=== PATIENT | male | born 1960 | race Caucasian/White ===

== ENCOUNTER 2021-01-09 11:26 | Inpatient (IN) | payer OTHER ==
[2021-01-09 14:33] LABS: URINE APPEARANCE CLEAR; URINE BILIRUBIN NEGATIVE (NEGATIVE); URINE COLOR YELLOW; URINE GLUCOSE (UA) NEGATIVE (NEGATIVE); URINE KETONE TRACE (NEGATIVE); URINE LEUK ESTERASE NEGATIVE (NEGATIVE); URINE NITRITE NEGATIVE (NEGATIVE); URINE PROTEIN NEGATIVE (NEGATIVE); URINE UROBILINOGEN 0.2 mg/dL (0.2-1.0)
[2021-01-09 14:48] LABS: BASO % 0.8 % (0-2.0); EOS % 1.3 % (0-4.5); HEMATOCRIT 43.1 % (35.4-49); HEMOGLOBIN 14.8 GM/dL (11.7-16.9); LYMPH % 18.5 % (8-40); MCH 31.4 pg (25.7-33.7); MCHC 34.4 g/dl (32.0-35.9); MEAN CELL VOLUME 91.2 fl (80-96); MEAN PLT VOLUME 8.9 fl (7.5-11.1); MONO % 8.7 % (3.8-10.2); NEUT % 70.7 % (42.8-82.8); PLATELET COUNT 208 10^3/uL (134-434); RBC 4.72 M/mm3 (4.00-5.60); RDW 13.8 % (11.9-15.9); WHITE BLOOD COUNT 8.6 K/mm3 (4.0-10.0)
[2021-01-09 15:08] LABS: CALCIUM 9.3 mg/dL (8.5-10.1)
[2021-01-09 15:09] LABS: ALBUMIN 4.4 g/dl (3.4-5.0); BLOOD UREA NITROGEN 18.7 mg/dL (7-18)
[2021-01-09 15:13] LABS: BILIRUBIN,TOTAL 0.6 mg/dL (0.2-1)
[2021-01-09] MEDS ORDERED: MORPHINE SULFATE 2 MG/ML VIAL IVPUSH PRN (20:57)
[2021-01-09] MEDS ORDERED: ACETAMINOPHEN 1000 MG/100 ML VIAL (NON FORMULARY) IVPB PRN (21:03)
[2021-01-09] MEDS ORDERED: FOLIC ACID 1 MG TABLET (FP) PO ONE (21:04)
[2021-01-09] MEDS ORDERED: FOLIC ACID 1 MG TABLET (FP) ONE (21:21)
[2021-01-09] MEDS ORDERED: THIAMINE HCL 200 MG/2 ML VIAL ONE (21:21)
[2021-01-09] MEDS ORDERED: POLYETHYLENE GLYCOL (HEALTHYLAX) 3350 17 GM PACKET ONE (21:21)
[2021-01-09] MEDS: POLYETHYLENE GLYCOL (HEALTHYLAX) 3350 17 GM PACKET PO SCH (21:46)
[2021-01-09] MEDS: THIAMINE HCL 200 MG/2 ML VIAL IVPB SCH (21:46)
[2021-01-09] MEDS: LACTATED RINGERS SOLUTION 1,000 ML IV SCH (21:46)
[2021-01-10 00:59] VITALS: BMI 34.3
[2021-01-10] MEDS: LACTATED RINGERS SOLUTION 1,000 ML IV SCH ×3 (03:40→14:53)
[2021-01-10] MEDS: THIAMINE HCL 200 MG/2 ML VIAL IVPB SCH (09:49)
[2021-01-10] MEDS: ENOXAPARIN NA (PORCINE) 40 MG/0.4 ML DISP.SYRIN SQ SCH (09:49)
[2021-01-10] MEDS: FOLIC ACID 1 MG TABLET (FP) PO SCH (09:49)
[2021-01-10] MEDS: POLYETHYLENE GLYCOL (HEALTHYLAX) 3350 17 GM PACKET PO SCH (09:50)
[2021-01-10] MEDS ORDERED: MORPHINE SULFATE 2 MG/ML VIAL IVPUSH PRN (10:39)
[2021-01-10 11:24] LABS: BASO % 0.5 % (0-2.0); EOS % 1.9 % (0-4.5); HEMATOCRIT 39.4 % (35.4-49); HEMOGLOBIN 13.8 GM/dL (11.7-16.9); MCH 32.1 pg (25.7-33.7); MEAN CELL VOLUME 91.8 fl (80-96); MEAN PLT VOLUME 9.4 fl (7.5-11.1); MONO % 8.9 % (3.8-10.2); NEUT % 70.7 % (42.8-82.8); PLATELET COUNT 189 10^3/uL (134-434); RDW 13.4 % (11.9-15.9); WHITE BLOOD COUNT 7.5 K/mm3 (4.0-10.0)
[2021-01-10 11:40] LABS: ALBUMIN 3.8 g/dl (3.4-5.0); CALCIUM 8.7 mg/dL (8.5-10.1)
[2021-01-10] MEDS: LISINOPRIL 20 MG TABLET PO SCH (11:41)
[2021-01-10] MEDS: amLODIPine BESYLATE 10 MG TABLET (FP) PO SCH (11:41)
[2021-01-10 11:44] LABS: CREATININE 0.9 mg/dL (0.55-1.3)
[2021-01-10 11:45] LABS: BILIRUBIN,TOTAL 1.1 mg/dL (0.2-1); TOT PROT 6.8 g/dl (6.4-8.2)
[2021-01-10] MEDS: DULoxetine HCL 30 MG CAPSULE.DR PO SCH (16:42)
[2021-01-10] MEDS ORDERED: DEXTROSE 5%-WATER - 50 ML IVPB ONE (18:39)
[2021-01-10] MEDS ORDERED: cefTRIAXone SODIUM 1 GM VIAL ONE (18:39)
[2021-01-10] MEDS: SODIUM CHLORIDE 1,000 ML IV SCH (18:45)
[2021-01-10] MEDS: CEFTRIAXONE 1 GM in DEXTROSE 5%-WATER - 50 ML IVPB SCH (18:46)
[2021-01-10] MEDS ORDERED: PT OWN MED DRAWER 7, Y5N ONE (20:34)
[2021-01-10] MEDS: ROSUVASTATIN CA 5 MG TABLET (FP) PO SCH (21:14)
[2021-01-10] MEDS: PRAZOSIN HCL 1 MG CAPSULE PO SCH (21:15)
[2021-01-10] MEDS ORDERED: PRAZOSIN HCL 2 MG CAPSULE PO SCH (22:00)
[2021-01-11] MEDS ORDERED: PNEUMOC 13-VAL CONJ-DIP CRM/PF 0.5 ML DISP.SYRIN IM ONE (01:31)
[2021-01-11] MEDS: SODIUM CHLORIDE 1,000 ML IV SCH ×2 (03:59→15:01)
[2021-01-11 09:42] LABS: HEMATOCRIT 38.1 % (35.4-49); HEMOGLOBIN 13.4 GM/dL (11.7-16.9); MEAN CELL VOLUME 91.3 fl (80-96); MEAN PLT VOLUME 9.4 fl (7.5-11.1); PLATELET COUNT 167 10^3/uL (134-434); RBC 4.17 M/mm3 (4.00-5.60); RDW 13.3 % (11.9-15.9); WHITE BLOOD COUNT 5.2 K/mm3 (4.0-10.0)
[2021-01-11] MEDS ORDERED: PNEUMOCOCCAL 23 VACCINE 0.5 ML VIAL IM ONE (10:00)
[2021-01-11 10:10] LABS: CREATININE 0.9 mg/dL (0.55-1.3)
[2021-01-11] MEDS ORDERED: PT OWN MED DRAWER 7, Y5N ONE (10:11)
[2021-01-11] MEDS ORDERED: cefTRIAXone SODIUM 1 GM VIAL ONE (10:11)
[2021-01-11] MEDS ORDERED: DEXTROSE 5%-WATER - 50 ML IVPB ONE (10:11)
[2021-01-11 10:17] LABS: CALCIUM 8.1 mg/dL (8.5-10.1)
[2021-01-11 10:18] LABS: BLOOD UREA NITROGEN 11.2 mg/dL (7-18); MAGNESIUM 2.1 mg/dL (1.8-2.4)
[2021-01-11 10:21] LABS: PHOSPHOROUS 2.5 mg/dL (2.5-4.9)
[2021-01-11] MEDS: ENOXAPARIN NA (PORCINE) 40 MG/0.4 ML DISP.SYRIN SQ SCH (10:32)
[2021-01-11] MEDS: DULoxetine HCL 30 MG CAPSULE.DR PO SCH (10:32)
[2021-01-11] MEDS: FOLIC ACID 1 MG TABLET (FP) PO SCH (10:32)
[2021-01-11] MEDS: POLYETHYLENE GLYCOL (HEALTHYLAX) 3350 17 GM PACKET PO SCH (10:32)
[2021-01-11] MEDS: amLODIPine BESYLATE 10 MG TABLET (FP) PO SCH (10:32)
[2021-01-11] MEDS: LISINOPRIL 20 MG TABLET PO SCH (10:32)
[2021-01-11] MEDS: THIAMINE HCL 200 MG/2 ML VIAL IVPB SCH (10:33)
[2021-01-11] MEDS: CEFTRIAXONE 1 GM in DEXTROSE 5%-WATER - 50 ML IVPB SCH (10:33)
[2021-01-11] MEDS: ROSUVASTATIN CA 5 MG TABLET (FP) PO SCH (22:09)
[2021-01-11] MEDS: ACETAMINOPHEN 500 MG TABLET (FP) PO PRN (22:09)
[2021-01-11] MEDS: PRAZOSIN HCL 1 MG CAPSULE PO SCH (22:10)
[2021-01-12] MEDS: SODIUM CHLORIDE 1,000 ML IV SCH ×4 (07:13→23:48)
[2021-01-12] MEDS ORDERED: PT OWN MED DRAWER 7, Y5N ONE ×2 (09:09→21:02)
[2021-01-12] MEDS: ENOXAPARIN NA (PORCINE) 40 MG/0.4 ML DISP.SYRIN SQ SCH (09:14)
[2021-01-12] MEDS: THIAMINE HCL 200 MG/2 ML VIAL IVPB SCH (09:15)
[2021-01-12] MEDS: DULoxetine HCL 30 MG CAPSULE.DR PO SCH (09:16)
[2021-01-12] MEDS: amLODIPine BESYLATE 10 MG TABLET (FP) PO SCH (09:16)
[2021-01-12] MEDS: FOLIC ACID 1 MG TABLET (FP) PO SCH (09:16)
[2021-01-12] MEDS: LISINOPRIL 20 MG TABLET PO SCH (09:16)
[2021-01-12] MEDS: POLYETHYLENE GLYCOL (HEALTHYLAX) 3350 17 GM PACKET PO SCH (09:16)
[2021-01-12 09:35] LABS: HEMATOCRIT 43.2 % (35.4-49); HEMOGLOBIN 15.1 GM/dL (11.7-16.9); MCH 32.1 pg (25.7-33.7); MCHC 34.9 g/dl (32.0-35.9); MEAN CELL VOLUME 91.8 fl (80-96); MEAN PLT VOLUME 9.4 fl (7.5-11.1); PLATELET COUNT 209 10^3/uL (134-434); RBC 4.71 M/mm3 (4.00-5.60); RDW 13.3 % (11.9-15.9); WHITE BLOOD COUNT 8.3 K/mm3 (4.0-10.0)
[2021-01-12 09:56] LABS: CALCIUM 9.2 mg/dL (8.5-10.1)
[2021-01-12 09:57] LABS: BLOOD UREA NITROGEN 9.6 mg/dL (7-18)
[2021-01-12 09:59] LABS: MAGNESIUM 2.3 mg/dL (1.8-2.4)
[2021-01-12 10:00] LABS: CREATININE 0.9 mg/dL (0.55-1.3); PHOSPHOROUS 2.9 mg/dL (2.5-4.9)
[2021-01-12] MEDS: ROSUVASTATIN CA 5 MG TABLET (FP) PO SCH (21:43)
[2021-01-12] MEDS: PRAZOSIN HCL 1 MG CAPSULE PO SCH (21:43)
[2021-01-13] MEDS: SODIUM CHLORIDE 1,000 ML IV SCH ×4 (04:35→22:07)
[2021-01-13 09:37] LABS: HEMATOCRIT 39.7 % (35.4-49); HEMOGLOBIN 13.7 GM/dL (11.7-16.9); MCH 31.6 pg (25.7-33.7); MCHC 34.5 g/dl (32.0-35.9); MEAN CELL VOLUME 91.6 fl (80-96); MEAN PLT VOLUME 9.6 fl (7.5-11.1); PLATELET COUNT 180 10^3/uL (134-434); RBC 4.34 M/mm3 (4.00-5.60); RDW 13.2 % (11.9-15.9); WHITE BLOOD COUNT 6.2 K/mm3 (4.0-10.0)
[2021-01-13 10:11] LABS: ALBUMIN 3.6 g/dl (3.4-5.0)
[2021-01-13 10:12] LABS: CALCIUM 8.2 mg/dL (8.5-10.1)
[2021-01-13 10:13] LABS: BLOOD UREA NITROGEN 8.4 mg/dL (7-18); MAGNESIUM 2.1 mg/dL (1.8-2.4)
[2021-01-13 10:14] LABS: CREATININE 0.8 mg/dL (0.55-1.3)
[2021-01-13 10:15] LABS: PHOSPHOROUS 2.7 mg/dL (2.5-4.9)
[2021-01-13 10:16] LABS: BILIRUBIN,TOTAL 0.9 mg/dL (0.2-1); TOT PROT 6.4 g/dl (6.4-8.2)
[2021-01-13] MEDS: ENOXAPARIN NA (PORCINE) 40 MG/0.4 ML DISP.SYRIN SQ SCH (13:45)
[2021-01-13] MEDS: DULoxetine HCL 30 MG CAPSULE.DR PO SCH (13:48)
[2021-01-13] MEDS: LISINOPRIL 20 MG TABLET PO SCH (13:48)
[2021-01-13] MEDS: ACETAMINOPHEN 500 MG TABLET (FP) PO PRN ×2 (13:48→22:06)
[2021-01-13] MEDS: THIAMINE HCL 200 MG/2 ML VIAL IVPB SCH (13:49)
[2021-01-13] MEDS: FOLIC ACID 1 MG TABLET (FP) PO SCH (13:49)
[2021-01-13] MEDS: amLODIPine BESYLATE 10 MG TABLET (FP) PO SCH (13:49)
[2021-01-13] MEDS: POLYETHYLENE GLYCOL (HEALTHYLAX) 3350 17 GM PACKET PO SCH (13:49)
[2021-01-13] MEDS ORDERED: PT OWN MED DRAWER 7, Y5N ONE (14:07)
[2021-01-13] MEDS: THIAMINE HCL 100 MG TABLET (FP) PO SCH ×2 (16:43→21:23)
[2021-01-13] MEDS: PRAZOSIN HCL 1 MG CAPSULE PO SCH (21:23)
[2021-01-13] MEDS: ROSUVASTATIN CA 5 MG TABLET (FP) PO SCH (21:23)
[2021-01-14] MEDS: SODIUM CHLORIDE 1,000 ML IV SCH (03:08)
[2021-01-14] MEDS ORDERED: PT OWN MED DRAWER 7, Y5N ONE ×2 (09:31→09:33)
[2021-01-14] MEDS: DULoxetine HCL 30 MG CAPSULE.DR PO SCH (09:39)
[2021-01-14] MEDS: LISINOPRIL 20 MG TABLET PO SCH (09:40)
[2021-01-14] MEDS: amLODIPine BESYLATE 10 MG TABLET (FP) PO SCH (09:40)
[2021-01-14] MEDS: POLYETHYLENE GLYCOL (HEALTHYLAX) 3350 17 GM PACKET PO SCH (09:40)
[2021-01-14] MEDS: FOLIC ACID 1 MG TABLET (FP) PO SCH (09:40)
[2021-01-14] MEDS: THIAMINE HCL 100 MG TABLET (FP) PO SCH (09:40)
[2021-01-14 09:57] LABS: HEMATOCRIT 39.3 % (35.4-49); HEMOGLOBIN 13.8 GM/dL (11.7-16.9); MCH 31.6 pg (25.7-33.7); MEAN CELL VOLUME 90.4 fl (80-96); PLATELET COUNT 159 10^3/uL (134-434); RBC 4.35 M/mm3 (4.00-5.60); RDW 13.4 % (11.9-15.9)
[2021-01-14 10:23] LABS: CALCIUM 8.3 mg/dL (8.5-10.1)
[2021-01-14 10:27] LABS: CREATININE 0.7 mg/dL (0.55-1.3); PHOSPHOROUS 2.9 mg/dL (2.5-4.9)
[2021-01-14 11:02] VITALS: BP 131/79; PULSE 54; TEMP 98
== END 2021-01-14 14:16 | disposition home or self-care (01) | DRG 440 ==
LOC: JER 11:26 → JERBED 18:09 → J5S 22:28
PROVIDERS: ADMIT Internal Medicine; ATTEND Internal Medicine
DX: K85.90 Acute pancreatitis without necrosis or infection, unspecified (principal); I10 Essential (primary) hypertension; R73.03 Prediabetes; R16.0 Hepatomegaly, not elsewhere classified; D35.00 Benign neoplasm of unspecified adrenal gland; F12.90 Cannabis use, unspecified, uncomplicated; F10.20 Alcohol dependence, uncomplicated; F43.10 Post-traumatic stress disorder, unspecified; K59.00 Constipation, unspecified; F41.8 Other specified anxiety disorders; E78.5 Hyperlipidemia, unspecified; N40.0 Benign prostatic hyperplasia without lower urinary tract symptoms; E66.9 Obesity, unspecified; Z68.34 Body mass index [BMI] 34.0-34.9, adult
CPT/HCPCS: 36415; 74177-TC; 76705-TC; 80048; 80053; 80061; 81003; 83690; 83735; 84100; 85025; 85027; 90732; 93005; 93010; 99285-25; C9803; G0009; J0131; Q9967; U0003; U0005

== ENCOUNTER 2023-01-10 05:32 | Emergency (ER) | payer OTHER ==
[2023-01-10 05:44] VITALS: TEMP 98; BMI 33.9
[2023-01-10] MEDS ORDERED: DEXAMETHASONE SOD PHOSPHATE 10 MG/1 ML VIAL IM ONE (07:09)
[2023-01-10] MEDS ORDERED: LIDOCAINE 5% TOPICAL PATCH TP ONE (07:09)
[2023-01-10] MEDS ORDERED: ACETAMINOPHEN 500 MG TABLET (FP) PO ONE (07:16)
[2023-01-10] MEDS ORDERED: ACETAMINOPHEN 325 MG TABLET (FP) ONE (07:32)
[2023-01-10] MEDS ORDERED: DEXAMETHASONE SOD PHOSPHATE 10 MG/1 ML VIAL ONE (07:33)
[2023-01-10] MEDS ORDERED: LIDOCAINE 5% TOPICAL PATCH ONE (07:33)
[2023-01-10 10:02] VITALS: BP 150/82; PULSE 68; RESP 18
== END 2023-01-10 10:03 | disposition home or self-care (01) ==
LOC: JER 05:32
PROC: 3E023GC Introduction of Other Therapeutic Substance into Muscle, Percutaneous Approach (ICD-10-PCS; principal; 2023-01-10)
DX: M79.601 Pain in right arm (principal); R20.2 Paresthesia of skin; M54.12 Radiculopathy, cervical region
CPT/HCPCS: 70450-TC; 72125-TC; 93005; 93010; 99284-25; J1100

== ENCOUNTER 2023-01-20 23:32 | Emergency (ER) | payer OTHER ==
[2023-01-20 23:46] VITALS: BMI 33.0
[2023-01-20] MEDS ORDERED: ACETAMINOPHEN 1000 MG/100 ML BAG IVPB ONE (23:53)
[2023-01-21] MEDS ORDERED: LIDOCAINE 5% TOPICAL PATCH TP ONE (00:05)
[2023-01-21] MEDS ORDERED: LIDOCAINE 5% TOPICAL PATCH ONE (00:25)
[2023-01-21] MEDS ORDERED: ACETAMINOPHEN INJECTION 100 ML IVPB ONE (00:25)
[2023-01-21 00:31] LABS: BASO % 0.5 % (0-2.0); EOS % 0.5 % (0-4.5); HEMOGLOBIN 14.1 GM/dL (11.7-16.9); LYMPH % 8.9 % (8-40); MCH 30.3 pg (25.7-33.7); MCHC 33.6 g/dl (32.0-35.9); MEAN CELL VOLUME 90.3 fl (80-96); MEAN PLT VOLUME 8.2 fl (7.5-11.1); MONO % 4.7 % (3.8-10.2); NEUT % 85.4 % (42.8-82.8); PLATELET COUNT 200 10^3/uL (134-434); RBC 4.65 M/mm3 (4.00-5.60); RDW 14.4 % (11.9-15.9); WHITE BLOOD COUNT 11.9 K/mm3 (4.0-10.0)
[2023-01-21 00:38] LABS: INR 1.01 (0.83-1.09); PROTHROMBIN TIME (PATIENT) 11.7 SEC (9.7-13.0)
[2023-01-21 00:41] LABS: ACTIVATED PTT 32.4 SECONDS (25.2-36.5)
[2023-01-21] MEDS ORDERED: diazePAM CARPU-JECT 10 MG/2 ML DISP.SYRIN IVPUSH ONE (00:44)
[2023-01-21] MEDS ORDERED: KETOROLAC TROMETHAMINE 30 MG/1 ML VIAL IVPUSH ONE (00:44)
[2023-01-21] MEDS ORDERED: KETOROLAC TROMETHAMINE 30 MG/1 ML VIAL ONE (00:47)
[2023-01-21] MEDS ORDERED: diazePAM CARPU-JECT 10 MG/2 ML DISP.SYRIN ONE (00:47)
[2023-01-21 00:50] LABS: POTASSIUM 4.3 mmol/L (3.5-5.1)
[2023-01-21 00:52] LABS: CALCIUM 8.4 mg/dL (8.5-10.1)
[2023-01-21 00:53] LABS: ALBUMIN 3.8 g/dl (3.4-5.0); BLOOD UREA NITROGEN 14.5 mg/dL (7-18)
[2023-01-21 00:55] LABS: CREATININE 0.9 mg/dL (0.55-1.3)
[2023-01-21 00:57] LABS: BILIRUBIN,TOTAL 0.5 mg/dL (0.2-1)
[2023-01-21 02:17] VITALS: BP 150/89; PULSE 72; RESP 18; TEMP 97.6
[2023-01-21] MEDS ORDERED: LIDOCAINE PATCH REMOVAL MC ONE (12:00)
== END 2023-01-21 04:08 | disposition home or self-care (01) ==
LOC: JER 23:32
PROC: 3E033NZ Introduction of Analgesics, Hypnotics, Sedatives into Peripheral Vein, Percutaneous Approach (ICD-10-PCS; principal; 2023-01-21)
PROC: 3E033GC Introduction of Other Therapeutic Substance into Peripheral Vein, Percutaneous Approach (ICD-10-PCS; 2023-01-21)
PROC: 3E0333Z Introduction of Anti-inflammatory into Peripheral Vein, Percutaneous Approach (ICD-10-PCS; 2023-01-21)
DX: M54.2 Cervicalgia (principal); M25.521 Pain in right elbow; M79.601 Pain in right arm; R42 Dizziness and giddiness
CPT/HCPCS: 36415; 70496-TC; 70498-TC; 71045-TC-FY; 73070-TC-RT-FY; 73090-TC-RT-FY; 80053; 84484; 85025; 85610; 85730; 93005; 93010; 99285-25

== ENCOUNTER 2023-02-28 04:04 | Day surgery (SDC) | payer BC, OTHER ==
[2023-02-27 11:36] VITALS: BMI 33.0
[2023-02-28] MEDS ORDERED: DEXAMETHASONE SOD PHOSPHATE 10 MG/1 ML VIAL ONE (07:26)
[2023-02-28] MEDS ORDERED: LIDOCAINE HCL/PF 1% SDV 5ML VIAL ONE (07:26)
[2023-02-28] MEDS ORDERED: ACETAMINOPHEN 500 MG TABLET (FP) PO PRN (11:24)
[2023-02-28 11:53] VITALS: RESP 18
[2023-02-28] MEDS ORDERED: LIDOCAINE HCL 1%, 10 MG/ML (50 mL VIAL) NR ONE (13:16)
[2023-02-28] MEDS ORDERED: DEXAMETHASONE SOD PHOSPHATE 10 MG/1 ML VIAL IM ONE (13:17)
[2023-02-28] MEDS ORDERED: IOHEXOL 180 MG/1 ML ML IJ ONE (13:17)
[2023-02-28 14:26] VITALS: BP 140/78; PULSE 72; TEMP 98.4
== END 2023-02-28 14:27 | disposition home or self-care (01) ==
LOC: JASU-SURG 04:04
PROVIDERS: ATTEND Pain Medicine Pain Medicine
PROC: 3E0R3BZ Introduction of Anesthetic Agent into Spinal Canal, Percutaneous Approach (ICD-10-PCS; 2023-02-28)
PROC: 3E0R33Z Introduction of Anti-inflammatory into Spinal Canal, Percutaneous Approach (ICD-10-PCS; principal; 2023-02-28 13:30)
DX: M54.12 Radiculopathy, cervical region (principal)
CPT/HCPCS: 76000-TC-FY; J1100

== ENCOUNTER 2023-03-24 04:54 | Day surgery (SDC) | payer OTHER ==
[2023-03-22 15:14] VITALS: BMI 33.0
[2023-03-24] MEDS ORDERED: LIDOCAINE HCL/PF 1% SDV 5ML VIAL ONE (07:24)
[2023-03-24] MEDS ORDERED: BUPIVACAINE HCL/PF 0.5% (5MG/ML) 10 ML VIAL ONE (07:24)
[2023-03-24] MEDS ORDERED: BUPIVACAINE HCL/PF 0.75% 10 ML VIAL ONE (12:43)
[2023-03-24] MEDS ORDERED: BUPIVACAINE HCL/PF 0.5% (5MG/ML) 10 ML VIAL IJ ONE ×2 (13:00)
[2023-03-24] MEDS ORDERED: LIDOCAINE 1% P/F 10 MG/ML VIAL INF ONE (13:00)
[2023-03-24 14:14] VITALS: BP 137/78; PULSE 72; RESP 18; TEMP 98
[2023-03-24] MEDS ORDERED: ACETAMINOPHEN 500 MG TABLET (FP) PO PRN (14:18)
== END 2023-03-24 13:45 | disposition home or self-care (01) ==
LOC: JASU-SURG 04:54
PROVIDERS: ATTEND Pain Medicine Pain Medicine
PROC: 3E0T3BZ Introduction of Anesthetic Agent into Peripheral Nerves and Plexi, Percutaneous Approach (ICD-10-PCS; principal; 2023-03-24 13:30)
DX: M47.812 Spondylosis without myelopathy or radiculopathy, cervical region (principal)

== ENCOUNTER 2023-05-05 04:19 | Day surgery (SDC) | payer OTHER, BC ==
[2023-05-04 11:13] VITALS: BMI 33.0
[2023-05-05] MEDS ORDERED: BUPIVACAINE HCL/PF 0.75% 10 ML VIAL ONE (07:29)
[2023-05-05] MEDS ORDERED: LIDOCAINE HCL/PF 1% SDV 5ML VIAL ONE (07:29)
[2023-05-05] MEDS ORDERED: LIDOCAINE HCL 1% PRESERVATIVE FREE - 30ML VIAL INF ONE ×2 (13:05→13:21)
[2023-05-05] MEDS ORDERED: BUPIVACAINE HCL/PF 0.75% 10 ML VIAL CAUD ONE ×2 (13:05→13:21)
[2023-05-05 13:37] VITALS: RESP 20
[2023-05-05 14:05] VITALS: BP 160/90; PULSE 84; TEMP 98
== END 2023-05-05 14:04 | disposition home or self-care (01) ==
LOC: JASU-SURG 04:19
PROVIDERS: ATTEND Pain Medicine Pain Medicine
PROC: 3E0T33Z Introduction of Anti-inflammatory into Peripheral Nerves and Plexi, Percutaneous Approach (ICD-10-PCS; 2023-05-05)
PROC: 3E0T3BZ Introduction of Anesthetic Agent into Peripheral Nerves and Plexi, Percutaneous Approach (ICD-10-PCS; principal; 2023-05-05 14:00)
DX: M47.816 Spondylosis without myelopathy or radiculopathy, lumbar region (principal)
CPT/HCPCS: 76000-TC-FY